=== PATIENT | female | born 1955 | race Caucasian/White ===

== ENCOUNTER 2017-11-24 16:28 | Emergency (ER) | payer OTHER ==
[~2017-11-24] VITALS: Ht 157.5 cm; Wt 81.8 kg
[~2017-11-24 16:28] MED LIST: ALBU8I INH; E-ZMIS3 INH; LEVO.05 PO; VENL25TA14 PO
[2017-11-24] MEDS ORDERED: IOHEXOL 350 MG/ML 10 ML VIAL (for RAD DIAG) IVCONTRAST ONE (16:29)
[2017-11-24 16:30] VITALS: BP 152/75; PULSE 90; RESP 18; TEMP 98.2; O2SAT 98
[2017-11-24] MEDS ORDERED: SODIUM CHLOR 0.9% 1000 ML INJ 1,000 ML IV SCH (16:47)
[2017-11-24] MEDS ORDERED: ONDANSETRON HCL 4 MG/2 ML VIAL IVP ONE (17:00)
[2017-11-24] MEDS ORDERED: MORPHINE SULFATE 2 MG/ML INJ IV PUSH ONE (17:00)
--- NOTE | 2017-11-24 17:08 | PD ---
HPI Chief Complaint: Abdominal Pain Time Seen by Provider: 16:35 Travel History International Travel<30 days: No Contact w/Intl Traveler<30days: No Traveled to known affect area: No History of Present Illness HPI 61-year-old female that presents to the ED for evaluation of left lower quadrant abdominal pain. Patient states that she's had this pain since this morning. Per patient she's been working at her desk with a computer and she developed the pain. Per patient's becoming sharp and severe. Per patient the pain gets more severe which is what brought her here for evaluation. The patient pain is 8 out of 10. She has any surgeries. She had a colonoscopy about 8 years ago and was negative for any acute disease. She denies any urinary symptoms but states having some diarrhea with the liquid stool today. Patient denies any blood in her stool or dark stools. Per patient she's never had this pain before. No surgeries to her abdomen. Denies any chest pain or shortness of breath. No headache. No blurry vision or double vision. Pain stays mainly in the left lower quadrant does not radiate. No injury or trauma. PFSH Past Medical History Cardiovascular Problems: Yes (HTN) Social History Tobacco Use: No Allergies-Medications (Allergen,Severity, Reaction): Coded Allergies: No Known Allergies (Unverified Adverse Reaction, Unknown, 11/24/17) Reported Meds & Prescriptions Reported Meds & Active Scripts Active Zofran Odt (Ondansetron Odt) 4 Mg Tab 4 Mg SL Q6HR PRN Hydrocodone-Acetaminophen 7.5-300 Mg Tab 1 Tab PO Q6H PRN Flagyl (Metronidazole) 500 Mg Tab 500 Mg PO TID 10 Days Cipro (Ciprofloxacin HCl) 500 Mg Tab 500 Mg PO BID 10 Days Reported Wellbutrin SR 12 HR (Bupropion HCl) 100 Mg Tab 100 Mg PO Q12HR Synthroid (Levothyroxine Sodium) 50 Mcg Tab 50 Mcg PO DAILY Review of Systems Except as stated in HPI: all other systems reviewed are Neg Physical Exam Narrative GENERAL: SKIN: Warm and dry. HEAD: Atraumatic. Normocephalic. EYES: Pupils equal and round. No scleral icterus. No injection or drainage. ENT: No nasal bleeding or discharge. Mucous membranes pink and moist. Tongue is midline. No uvula deviation. NECK: Trachea midline. No JVD. CARDIOVASCULAR: Regular rate and rhythm. No murmurs, S3, S4. RESPIRATORY: No accessory muscle use. Clear to auscultation. Breath sounds equal bilaterally. GASTROINTESTINAL: Abdomen soft, tender to touch in the left lower quadrant especially with deep palpation, nondistended. Hepatic and splenic margins not palpable. MUSCULOSKELETAL: Extremities without clubbing, cyanosis, or edema. No obvious deformities. Full range of motion of the upper and lower extremities bilaterally. 2+ pulses bilaterally. NEUROLOGICAL: Awake and alert. No obvious cranial nerve deficits. Motor grossly within normal limits. Five out of 5 muscle strength in the arms and legs. Normal speech. PSYCHIATRIC: Appropriate mood and affect; insight and judgment normal. Data Data Last Documented VS Vital Signs Date Time Temp Pulse Resp B/P (MAP) Pulse Ox O2 Delivery O2 Flow Rate FiO2 11/24/17 16:30 98.2 90 18 152/75 (100) 98 Orders Orders Complete Blood Count With Diff (11/24/17 16:47) Comprehensive Metabolic Panel (11/24/17 16:47) Lipase (11/24/17 16:47) Lactic Acid (11/24/17 16:47) Prothrombin Time / Inr (Pt) (11/24/17 16:47) Act Partial Throm Time (Ptt) (11/24/17 16:47) Urinalysis - C+S If Indicated (11/24/17 16:47) Ct Abd/Pel W Iv Contrast(Rout) (11/24/17 16:47) Iv Access Insert/Monitor (11/24/17 16:47) Ecg Monitoring (11/24/17 16:47) Ondansetron Inj (Zofran Inj) (11/24/17 17:00) Sodium Chlor 0.9% 1000 Ml Inj (Ns 1000 M (11/24/17 16:47) Morphine Inj (Morphine Inj) (11/24/17 17:00) Iohexol 350 Inj (Omnipaque 350 Inj) (11/24/17 16:29) Ciprofloxacin (Cipro) (11/24/17 19:00) Metronidazole (Flagyl) (11/24/17 19:00) Acetamin-Hydrocod 325-10 Mg ([place] 10-32 (11/24/17 19:00) Ed Discharge Order (11/24/17 18:53) Labs Laboratory Tests Test 11/24/17 17:02 11/24/17 17:35 White Blood Count 8.1 TH/MM3 Red Blood Count 4.27 MIL/MM3 Hemoglobin 14.6 GM/DL Hematocrit 42.4 % Mean Corpuscular Volume 99.2 FL Mean Corpuscular Hemoglobin 34.2 PG Mean Corpuscular Hemoglobin Concent 34.5 % Red Cell Distribution Width 13.8 % Platelet Count 187 TH/MM3 Mean Platelet Volume 8.8 FL Neutrophils (%) (Auto) 72.8 % Lymphocytes (%) (Auto) 16.9 % Monocytes (%) (Auto) 8.3 % Eosinophils (%) (Auto) 1.3 % Basophils (%) (Auto) 0.7 % Neutrophils # (Auto) 5.9 TH/MM3 Lymphocytes # (Auto) 1.4 TH/MM3 Monocytes # (Auto) 0.7 TH/MM3 Eosinophils # (Auto) 0.1 TH/MM3 Basophils # (Auto) 0.1 TH/MM3 CBC Comment DIFF FINAL Differential Comment Prothrombin Time 10.5 SEC Prothromb Time International Ratio 1.0 RATIO Activated Partial Thromboplast Time 24.5 SEC Blood Urea Nitrogen 10 MG/DL Creatinine 0.86 MG/DL Random Glucose 104 MG/DL Total Protein 7.8 GM/DL Albumin 3.9 GM/DL Calcium Level 9.3 MG/DL Alkaline Phosphatase 98 U/L Aspartate Amino Transf (AST/SGOT) 25 U/L Alanine Aminotransferase (ALT/SGPT) 40 U/L Total Bilirubin 0.3 MG/DL Sodium Level 134 MEQ/L Potassium Level 3.4 MEQ/L Chloride Level 96 MEQ/L Carbon Dioxide Level 29.7 MEQ/L Anion Gap 8 MEQ/L Estimat Glomerular Filtration Rate 67 ML/MIN Lactic Acid Level 1.7 mmol/L Lipase 207 U/L Urine Color YELLOW Urine Turbidity CLEAR Urine pH 7.0 Urine Specific [place] 1.017 Urine Protein NEG mg/dL Urine Glucose (UA) NEG mg/dL Urine Ketones NEG mg/dL Urine Occult Blood NEG Urine Nitrite NEG Urine Bilirubin NEG Urine Urobilinogen LESS THAN 2.0 MG/DL Urine Leukocyte Esterase SMALL Urine RBC 2 /hpf Urine WBC 4 /hpf Urine Squamous Epithelial Cells 3 /hpf Urine Bacteria OCC /hpf Urine Mucus FEW /lpf Microscopic Urinalysis Comment CULT NOT INDICATED MDM Medical Decision Making Medical Screen Exam Complete: Yes Emergency Medical Condition: Yes Medical Record Reviewed: Yes Interpretation(s) CBC & BMP Diagram 11/24/17 17:02 Total Protein 7.8, Albumin 3.9, Calcium Level 9.3, Alkaline Phosphatase 98, Aspartate Amino Transf (AST/SGOT) 25, Alanine Aminotransferase (ALT/SGPT) 40, Total Bilirubin 0.3 Last Impressions Abdomen/Pelvis CT 11/24/17 1647 Signed Impressions: Service Date/Time: Friday, November 24, 2017 18:12 - CONCLUSION: 1. Mild acute diverticulitis involving the distal descending colon. 2. Hepatic steatosis. 3. Moderate sized hiatal hernia. Santiago Ledezma Jr., MD UA negative Differential Diagnosis Abdominal pain versus diverticulitis versus acute abdomen versus appendicitis versus UTI versus kidney stone Narrative Course 61-year-old female that presents to the ED for evaluation of abdominal pain. Patient was properly examined and was found have signs and symptoms consistent with history left lower quadrant abdominal pain. Unclear etiology at this time. Labs and imaging recommended. Patient agrees. Patient was given IV fluids and pain medications. Labs and imaging showed acute diverticulitis. Also was unremarkable. Patient does feel improved. My attending Dr. Ocampo spoke with the patient who agrees with plan. Patient was given first dose of antibiotics here by mouth. Patient was given Lortab by mouth. Patient was given prescriptions for pain medication and antibiotics. Patient agrees with plan. Given note for work. See ED worsening symptoms. Follow with PCP. Diagnosis Primary Impression: Diverticulitis large intestine Qualified Codes: K57.32 - Diverticulitis of large intestine without perforation or abscess without bleeding Patient Instructions: General Instructions Departure Forms: Tests/Procedures, Work Release Enter return to work date: Nov 27, 2017 Additional Instructions: Take medication as prescribed. Liquid diet. Follow with PCP. See ED worsening symptoms. Med/Other Pt SpecificInfo: Prescription(s) given Scripts Ondansetron Odt (Zofran Odt) 4 Mg Tab 4 MG SL Q6HR Y for Nausea/Vomiting, #20 TAB 0 Refills Prov: Anthony Ocampo MD 11/24/17 Hydrocodone-Acetaminophen (Hydrocodone-Acetaminophen) 7.5-300 Mg Tab 1 TAB PO Q6H Y for PAIN, #20 TAB 0 Refills Prov: Anthony Ocampo MD 11/24/17 Metronidazole (Flagyl) 500 Mg Tab 500 MG PO TID for Infection for 10 Days, TAB 0 Refills Prov: Anthony Ocampo MD 11/24/17 Ciprofloxacin (Cipro) 500 Mg Tab 500 MG PO BID for Infection for 10 Days, #20 TAB 0 Refills Prov: Anthony Ocmapo MD 11/24/17 Disposition: 01 DISCHARGE HOME Condition: Derek Armstrong Nov 24, 2017 17:08
[2017-11-24 17:46] LABS: AUTOMATED NEUTROPHIL # 5.9 TH/MM3 (1.8-7.7); BASOPHIL # 0.1 TH/MM3 (0-0.2); BASOPHIL % 0.7 % (0.0-2.0); EOSINOPHIL # 0.1 TH/MM3 (0-0.4); EOSINOPHIL % 1.3 % (0.0-4.0); HEMATOCRIT 42.4 % (35.0-46.0); HEMOGLOBIN 14.6 GM/DL (11.6-15.3); LYMPH % 16.9 % (9.0-44.0); LYMPHOCYTE # 1.4 TH/MM3 (1.0-4.8); MEAN CELL VOLUME 99.2 FL (80.0-100.0); MEAN CORPUSCULAR HEMOGLOBIN 34.2 PG (27.0-34.0); MEAN CORPUSCULAR HGB CONC 34.5 % (32.0-36.0); MEAN PLATELET VOLUME 8.8 FL (7.0-11.0); MONO % 8.3 % (0.0-8.0); MONOCYTE # 0.7 TH/MM3 (0-0.9); NEUT % 72.8 % (16.0-70.0); PLATELET COUNT 187 TH/MM3 (150-450); RED BLOOD COUNT 4.27 MIL/MM3 (4.00-5.30); RED CELL DISTRIBUTION WIDTH 13.8 % (11.6-17.2); WHITE BLOOD COUNT 8.1 TH/MM3 (4.0-11.0)
[2017-11-24] MEDS ORDERED: LEVO.05 PO (17:48)
[2017-11-24] MEDS ORDERED: BUPR100CR PO (17:48)
[2017-11-24 17:55] LABS: PROTHROMBIN TIME - PATIENT 10.5 SEC (9.8-11.6)
[2017-11-24 18:10] LABS: ALBUMIN 3.9 GM/DL (3.4-5.0); AST (GOT) 25 U/L (15-37); BICARBONATE 29.7 MEQ/L (21.0-32.0); BLOOD UREA NITROGEN 10 MG/DL (7-18); CALCIUM 9.3 MG/DL (8.5-10.1); CHLORIDE 96 MEQ/L (98-107); CREATININE 0.86 MG/DL (0.50-1.00); GLOMERULAR FILTRATION RATE 67 ML/MIN (>89); GLUCOSE,RANDOM 104 MG/DL (74-106); LIPASE 207 U/L (73-393); SODIUM (NA) 134 MEQ/L (136-145)
[2017-11-24 18:11] LABS: ALT (GPT) 40 U/L (10-53)
[2017-11-24 18:13] LABS: ALKALINE PHOSPHATASE 98 U/L (45-117); TOTAL BILIRUBIN ADULT 0.3 MG/DL (0.2-1.0); TOTAL PROTEIN 7.8 GM/DL (6.4-8.2)
[2017-11-24 18:13] LABS: BACTERIA, URINE OCC /hpf; BILIRUBIN, URINE NEG (NEG); BLOOD, URINE NEG (NEG); GLUCOSE,URINE NEG (NEG); KETONE, URINE NEG (NEG); MUCUS URINE FEW /lpf (OCC); NITRITE,URINE NEG (NEG); SQUAMOUS EPITHELIAL CELL URINE 3 /hpf (0-5); URINE COLOR YELLOW (YELLW/STRAW); URINE LEUKOCYTE ESTERASE SMALL (NEG)
--- NOTE | 2017-11-24 18:44 | RADRPT ---
EXAM DATE/TIME: 11/24/2017 18:12 [facility] COMPARISON: No previous studies available for comparison. INDICATIONS : Left lower abdomen pain today. IV CONTRAST: 90 cc Omnipaque 350 (iohexol) IV ORAL CONTRAST: No oral contrast ingested. RADIATION DOSE: 9.23 CTDIvol (mGy) MEDICAL HISTORY : Hypertension. SURGICAL HISTORY : None. ENCOUNTER: Initial ACUITY: 1 day PAIN SCALE: 7/10 LOCATION: Left lower quadrant TECHNIQUE: Volumetric scanning of the abdomen and pelvis was performed. Using automated exposure control and ad justment of the mA and/or kV according to patient size, radiation dose was kept as low as reasonably achievable to obtain optimal diagnostic quality images. DICOM format image data is available electro nically for review and comparison. FINDINGS: LOWER LUNGS: The visualized lower lungs are clear. Moderate sized hiatal hernia. LIVER: Homogeneously low density without lesion. There is no dilation of the biliary tree. No calcified ga llstones. SPLEEN: Normal size without lesion. PANCREAS: Within normal limits. KIDNEYS: Normal in size and shape. There is no mass, stone or hydronephrosis. ADRENAL GLANDS: Within normal limits. VASCULAR: There is no aortic aneurysm. BOWEL/MESENTERY: There is mild stranding of the pericolonic flat involving the distal descending colon. There is an as sociated diverticulum. No free air, abscess, or obstruction. Remaining bowel structures are unremarka ble. ABDOMINAL WALL: Within normal limits. RETROPERITONEUM: There is no lymphadenopathy. BLADDER: No wall thickening or mass. REPRODUCTIVE: Within normal limits. INGUINAL: There is no lymphadenopathy or hernia. MUSCULOSKELETAL: Within normal limits for patient age. CONCLUSION: 1. Mild acute diverticulitis involving the distal descending colon. 2. Hepatic steatosis. 3. Moderate sized hiatal hernia. Santiago Ledezma Jr., MD on November 24, 2017 at 18:39 Board Certified Radiologist. This report was verified electronically.
[2017-11-24] MEDS ORDERED: METR-1 PO (18:52)
[2017-11-24] MEDS ORDERED: HYDR-2376 PO (18:52)
[2017-11-24] MEDS ORDERED: ZOFR4TAB3 SL (18:52)
[2017-11-24] MEDS ORDERED: CIPR-9 PO (18:52)
[2017-11-24] MEDS ORDERED: CIPROFLOXACIN 500 MG TAB PO ONE (19:00)
[2017-11-24] MEDS ORDERED: metroNIDAZOLE 500 MG TAB PO ONE (19:00)
[2017-11-24] MEDS ORDERED: ACETAMINOPHEN/HYDROcodone 325 MG/10 MG TAB PO ONE (19:00)
== END 2017-11-24 19:16 | disposition home or self-care (01) ==
LOC: NEPE 16:28
DX: K57.32 Diverticulitis of large intestine without perforation or abscess without bleeding (principal); I10 Essential (primary) hypertension
CPT/HCPCS: 74177; 80053; 81001; 83605; 83690; 85025; 85610; 85730; 96361; 96374; 96375; 99285; J2270; J2405; J7030; Q9967